=== PATIENT | female | born 1935 | race Two or more races ===

== ENCOUNTER 2019-04-14 12:17 | Inpatient (IN) | payer MEDICARE, MEDICAID ==
[~2019-04-14] VITALS: Ht 165.1 cm; Wt 64.0 kg
--- NOTE | 2019-04-14 12:24 | NUR ---
CAME IN FOR INTERMITTENT CHEST PAIN WITH SOB X 1 WEEK , 'PER OF PATIENT, FEELS TIGHT AND PAIN IN THE CHEST WHEN COUGHING", TO ER 12, HOOKED TO ACCOUNT DEVELOPMENT ASSOCIATE, CHANGED TO HOSP GOWN, PROVIDED W WARM BLANKET, AWAITING MD FONTENOT.
--- NOTE | 2019-04-14 12:34 | NUR ---
DR SALINAS AT BEDSIDE
[2019-04-14 12:56] LABS: BASOPHILS # (AUTO) 0.1 /CMM (0.0-0.2); HEMATOCRIT 43 % (33-45); HEMOGLOBIN 14.2 g/dL (11.5-14.8); LYMPHOCYTES # (AUTO) 1.2 /CMM (0.8-4.8); LYMPHOCYTES % (AUTO) 15.6 % (20.0-44.0); MEAN CORPUSCULAR HGB CONC 33 g/dl (31.0-36.0); MEAN CORPUSCULAR VOLUME 92 fL (82-100); MONOCYTES % (AUTO) 12.8 % (2.0-12.0); NEUTROPHILS # (AUTO) 5.1 /CMM (1.8-8.9); NEUTROPHILS % (AUTO) 66.6 % (43.0-81.0); PLATELET COUNT (AUTO) 261 /CMM (150-450); RED BLOOD CELL COUNT(AUTO) 4.67 MIL/uL (4.0-5.2); WHITE BLOOD COUNT (AUTO) 7.6 K/uL (4.3-11.0)
[2019-04-14] MEDS ORDERED: IPRATROPIUM NEB FS 0.5 MG/2.5 ML AMPUL.NEB NEB ONE (13:00)
[2019-04-14] MEDS ORDERED: IBUPROFEN 600 MG TABLET PO ONE ×2 (13:00→13:23)
[2019-04-14] MEDS ORDERED: ALBUTEROL FS 2.5 MG/3 ML VIAL.NEB NEB ONE (13:00)
[2019-04-14] MEDS ORDERED: ACETAMINOPHEN 650 MG/SUPP.RECT RC ONE (13:00)
[2019-04-14] MEDS ORDERED: IV NS 0.9% 1,000 ML BAG IV ONE (13:00)
[2019-04-14] MEDS ORDERED: methylPREDNISolone SOD SUCC 125 MG/2ML VIAL IV ONE (13:00)
[2019-04-14 13:07] LABS: CALCIUM, SERUM 8.8 mg/dL (8.5-10.1); CARBON DIOXIDE 24 mmol/L (21-32); CHLORIDE 104 mmol/L (98-107); CREATININE 1.1 mg/dL (0.6-1.3); GLUCOSE 101 mg/dL (74-106); POTASSIUM 4.2 mmol/L (3.5-5.1); SODIUM SERUM 136 mmol/L (136-145); UREA NITROGEN, BLOOD 19 mg/dL (7-18)
[2019-04-14] MEDS ORDERED: methylPREDNISolone SOD SUCC 125 MG/2ML VIAL ONE (13:23)
[2019-04-14] MEDS ORDERED: IPRATROPIUM NEB FS 0.5 MG/2.5 ML AMPUL.NEB ONE (13:28)
[2019-04-14] MEDS ORDERED: ACETAMINOPHEN ES 500 MG TABLET ONE (13:28)
[2019-04-14] MEDS ORDERED: ALBUTEROL FS 2.5 MG/3 ML VIAL.NEB ONE (13:28)
--- NOTE | 2019-04-14 13:30 | NUR ---
RT AT BEDSIDE FOR BREATHING TX
[2019-04-14] MEDS ORDERED: NITROGLYCERIN PACKET 1 GM PACKET TD ONE (14:00)
[2019-04-14] MEDS ORDERED: ACETAMINOPHEN ES 500 MG TABLET PO ONE (14:00)
[2019-04-14] MEDS ORDERED: ASPIRIN 325 MG TABLET PO ONE (14:00)
[2019-04-14] MEDS ORDERED: ASPIRIN 325 MG TABLET ONE (14:05)
[2019-04-14] MEDS ORDERED: NITROGLYCERIN PACKET 1 GM PACKET ONE (14:05)
[2019-04-14] MEDS ORDERED: SPIR25TA6 PO (14:36)
[2019-04-14] MEDS ORDERED: FLUT200B IH (14:36)
[2019-04-14] MEDS ORDERED: GABA-532 PO (14:36)
[2019-04-14] MEDS ORDERED: MONT10TA22 PO (14:36)
[2019-04-14] MEDS ORDERED: SERT50TA12 PO (14:36)
--- NOTE | 2019-04-14 14:44 | NUR ---
REPORT GIVEN TO ARNALDO OF TELE UNIT
[2019-04-14] MEDS ORDERED: ZOLPIDEM TARTRATE 5 MG TABLET PO PRN (15:00)
[2019-04-14] MEDS ORDERED: MAG HYDROX/AL HYDROX/SIMETH 30 ML UDC PO PRN (15:00)
[2019-04-14] MEDS ORDERED: HYDROCODONE/APAP 5/325MG 1 EACH TABLET PO PRN (15:00)
[2019-04-14] MEDS ORDERED: ONDANSETRON HCL/PF 4 MG/2 ML VIAL IVP PRN (15:00)
[2019-04-14] MEDS ORDERED: ACETAMINOPHEN 325 MG TABLET PO PRN (15:00)
[2019-04-14] MEDS ORDERED: Z GUARD REMEDY 2 OZ OINT TP PRN (15:00)
[2019-04-14] MEDS ORDERED: MAGNESIUM HYDROXIDE 30 ML UDC PO PRN (15:00)
[2019-04-14 16:30] VITALS: BP 116/73
--- NOTE | 2019-04-14 16:30 | NUR ---
rn note pt arrived from er with son at bedside, aox3, Brazilian speaking, ambulatory, vs stable, iv intact, on telemetry sr 86. no sob, no pain, safety measures place awaiting for admitting orders. will monitor.
[2019-04-14] MEDS: methylPREDNISolone SOD SUCC 40 MG/ML VIAL IV SCH (17:36)
[2019-04-14 18:00] VITALS: BP 116/73
[2019-04-14] MEDS: ALBUTEROL FS 2.5 MG/3 ML VIAL.NEB NEB SCH ×2 (19:39→23:30)
[2019-04-14] MEDS: IPRATROPIUM NEB FS 0.5 MG/2.5 ML AMPUL.NEB NEB SCH ×2 (19:39→23:30)
[2019-04-14 20:00] VITALS: BP 107/54
[2019-04-15] VITALS: BP 103/56
[2019-04-15] MEDS: ALBUTEROL FS 2.5 MG/3 ML VIAL.NEB NEB SCH ×2 (03:31→08:05)
[2019-04-15] MEDS: IPRATROPIUM NEB FS 0.5 MG/2.5 ML AMPUL.NEB NEB SCH ×6 (03:31→23:42)
[2019-04-15 04:00] VITALS: BP 114/68
[2019-04-15 07:01] LABS: BASOPHILS % (AUTO) 0.1 % (0.0-2.0); HEMATOCRIT 41 % (33-45); HEMOGLOBIN 13.4 g/dL (11.5-14.8); LYMPHOCYTES # (AUTO) 0.6 /CMM (0.8-4.8); LYMPHOCYTES % (AUTO) 4.4 % (20.0-44.0); MEAN CORPUSCULAR HGB CONC 33 g/dl (31.0-36.0); MEAN CORPUSCULAR VOLUME 92 fL (82-100); MONOCYTES # (AUTO) 0.5 /CMM (0.1-1.30); MONOCYTES % (AUTO) 3.8 % (2.0-12.0); NEUTROPHILS # (AUTO) 12.2 /CMM (1.8-8.9); NEUTROPHILS % (AUTO) 91.7 % (43.0-81.0); PLATELET COUNT (AUTO) 267 /CMM (150-450); RED BLOOD CELL COUNT(AUTO) 4.51 MIL/uL (4.0-5.2); WHITE BLOOD COUNT (AUTO) 13.3 K/uL (4.3-11.0)
--- NOTE | 2019-04-15 07:29 | NUR ---
ROLL SKINNER OPENING NOTE RECEIVED REPORT FROM [facility] SHIFT NURSE. PT AWAKE IN BED, ALERT AND ORIENTED X 4, ON 02 VIA NC 2L/MIN, SATURATING WELL, RESPIRATIONS EVEN AND UNLABORED, NO SIGNS OF RESPIRATORY DISTRESS NOTED. IV SITE ON RIGHT AC G20 INTACT, PATENT, WITH HEP LOCK IN PLACE. ON TELE MONITOR SINUS TACHY. BED IN LOW POSITION, LOCKED, CALL LIGHT WITHIN REACH. INTRODUCED SELF TO PT AND DISCUSSED PLAN OF CARE.
--- NOTE | 2019-04-15 07:31 | NUR ---
CONE EXAMINER OPENING NOTE RECEIVED REPORT FROM [facility] SHIFT NURSE. PT ASLEEP IN BED, ON 02 VIA NC 4L/MIN, SATURATING WELL, RESPIRATIONS EVEN AND UNLABORED, NO SIGNS OF RESPIRATORY DISTRESS NOTED. RIGHT UPPER ARM PICC LINE INTACT, PATENT, WITH HEP LOCK IN PLACE. BED IN LOW POSITION, LOCKED, CALL LIGHT WITHIN REACH. Addendum: 04/15/19 at 0733 by CRISTHIAN ARMANDO RN PLEASE DISREGARD THIS NOTE
[2019-04-15 07:36] LABS: CALCIUM, SERUM 9.1 mg/dL (8.5-10.1); CREATININE 1.2 mg/dL (0.6-1.3); MAGNESIUM 2.4 mg/dL (1.8-2.4); PHOSPHORUS 1.9 mg/dL (2.5-4.9); POTASSIUM 4.1 mmol/L (3.5-5.1)
[2019-04-15 08:00] VITALS: BP 109/66
[2019-04-15] MEDS: methylPREDNISolone SOD SUCC 40 MG/ML VIAL IV SCH ×3 (08:37→16:22)
[2019-04-15] MEDS: SPIRONOLACTONE 25 MG TABLET PO SCH (08:37)
[2019-04-15] MEDS: SERTRALINE HCL 50 MG TABLET PO SCH (08:37)
[2019-04-15] MEDS: MONTELUKAST SODIUM (10MG) 10 MG TABLET PO SCH (08:37)
[2019-04-15] MEDS: GABAPENTIN 100 MG CAPSULE PO SCH (08:37)
[2019-04-15] MEDS: FLUTICASONE/VILANTEROL 1 EACH BLST.W.DEV IH SCH (08:38)
[2019-04-15] MEDS: LEVALBUTEROL HCL NEB 1.25 MG/0.5 ML VIAL.NEB NEB SCH ×4 (11:32→23:42)
[2019-04-15 12:00] VITALS: BP 114/69
[2019-04-15] MEDS ORDERED: K PHOS NEUTRAL 250 MG TABLET PO ONE (13:00)
[2019-04-15 16:00] VITALS: BP 125/69
--- NOTE | 2019-04-15 19:20 | NUR ---
TELE/RN OPENING NOTE: RECEIVED PT AWAKE IN BED, A/O X 4, [place] SPEAKING. ON 4L OF OXYGEN VIA NC, SATURATING WELL, RESPIRATIONS EVEN AND UNLABORED, NO SIGNS OF RESPIRATORY DISTRESS NOTED. NO SOB NOTED. IV SITE ON RIGHT AC G20 INTACT, PATENT, WITH SL IN PLACE. ON TELE MONITOR SINUS TACHY HR OF 120'S. SAFETY MEASURES IN PLACE. BED IN LOW POSITION, LOCKED, CALL LIGHT WITHIN REACH. WILL CONTINUE MONITORING PATIENT ACCORDINGLY.
--- NOTE | 2019-04-15 19:54 | NUR ---
TELE/RN CLOSING NOTE: RECEIVED PT AWAKE IN BED, A/O X 4, SRI LANKAN SPEAKING. ON 4L OF OXYGEN VIA NC, SATURATING WELL, RESPIRATIONS EVEN AND UNLABORED, NO SIGNS OF RESPIRATORY DISTRESS NOTED. NO SOB NOTED. IV SITE ON RIGHT AC G20 INTACT, PATENT, WITH HEP LOCK IN PLACE. ON TELE MONITOR SINUS TACHY HR 122. BED IN LOW POSITION, LOCKED, CALL LIGHT WITHIN REACH. PROVIDED SAFETY AND COMFORT TO PT THROUGHOUT SHIFT, ALL DUE MEDS GIVEN. ENDORSED TO NOC SHIFT NURSE.
[2019-04-15 20:00] VITALS: BP 123/69
--- NOTE | 2019-04-15 22:06 | NUR ---
TELE/RN NOTES: PATIENT REQUESTED FOR SLEEPING MEDICATION, AMBIEN 5MG PO GIVEN AT 2206. TOLERATED WELL. WILL CONTINUE TO MONITOR PT ACCORDINGLY.
--- NOTE | 2019-04-15 23:16 | NUR ---
Met with patient, she speaks [place] only. She is alert and pleasant, states she lives locally alone on the third floor apartment with elevator access. States she is ambulatory and independent with adl's. Has no DME or homehealth reported. Her pcp is Dr. Addison Carter in [place] . She want to return home when discharge.Patient daughter Keshia [phone] will provide ride when discharge. Addendum: 04/15/19 at 2316 by NAYLA TOMAS RN Amended: Links added.
[2019-04-16] VITALS: BP 113/66
--- NOTE | 2019-04-16 02:30 | NUR ---
TELE/RN NOTES: PATIENT IS AGITATED AND STANDING AT THE HALLWAY. USED [employer] VIA PHONE. PATIENT WANTED TO BE MOVED IN A PRIVATE ROOM DUE TO HER CONDITION. ADDRESSED THE CONCERNS AT THE MEAN TIME. PATIENT MOVED TO ROOM 119 TEMPORARILY AND PATIENT IS NOW IN BED CALM, AND RESTING. WILL CONTINUE TO MONITOR ACCORDINGLY.
[2019-04-16] MEDS: LEVALBUTEROL HCL NEB 1.25 MG/0.5 ML VIAL.NEB NEB SCH ×4 (03:12→15:25)
[2019-04-16] MEDS: IPRATROPIUM NEB FS 0.5 MG/2.5 ML AMPUL.NEB NEB SCH ×4 (03:12→15:25)
[2019-04-16 04:00] VITALS: BP 145/84
--- NOTE | 2019-04-16 04:38 | NUR ---
TELE/RN NOTES: PATIENT STILL AGITATED AND WANTING TO GO OUT OF THE ROOM, PER PT "I WANT ANOTHER ROOM". CALLED DAUGHTER ILIANA AND LEFT A VOICEMAIL REGARDING PATIENT'S CONCERNS.
--- NOTE | 2019-04-16 04:58 | NUR ---
TELE/RN NOTES: PATIENT IS UPSET AND AGITATED, COMPLAINING ABOUT CHANGE OF ROOMS. PATIENT IS DEMANDING FOR A PRIVATE ROOM EXPLAINING SHE IS SCARED ABOUT HER ROOMMATE GOING INTO AN EMERGENCY AND NEEDING RAPID RESPONSE. PATIENT BELIEVES SOMEONE IS GONNA KILL HER. EXPLAINED TO PT THERE IS NO AVAILABLE PRIVATE ROOM, AND THAT SHE WILL BE THE ONLY PATIENT IN HER CURRENT TO GIVE HER PRIVACY. EXPLAINED TO PATIENT THAT SHE IS IN A SAFE ENVIRONMENT AND NO ONE IS GONNA HURT HER. PATIENT IS STILL UPSET AND WANTS TO LEAVE.
[2019-04-16 06:26] LABS: BASOPHILS % (AUTO) 0.1 % (0.0-2.0); HEMATOCRIT 42 % (33-45); LYMPHOCYTES # (AUTO) 0.9 /CMM (0.8-4.8); LYMPHOCYTES % (AUTO) 3.5 % (20.0-44.0); MEAN CORPUSCULAR HGB CONC 34 g/dl (31.0-36.0); MEAN CORPUSCULAR VOLUME 91 fL (82-100); MONOCYTES # (AUTO) 1.5 /CMM (0.1-1.30); MONOCYTES % (AUTO) 5.9 % (2.0-12.0); NEUTROPHILS # (AUTO) 22.2 /CMM (1.8-8.9); NEUTROPHILS % (AUTO) 90.5 % (43.0-81.0); PLATELET COUNT (AUTO) 333 /CMM (150-450); RED BLOOD CELL COUNT(AUTO) 4.62 MIL/uL (4.0-5.2); WHITE BLOOD COUNT (AUTO) 24.6 K/uL (4.3-11.0)
--- NOTE | 2019-04-16 07:00 | NUR ---
TELE/RN NOTES: PATIENT IS AGITATED ONCE AGAIN, THREATENING TO COMPLAIN STAFF ABOUT INCIDENTS DAYS AGO. PATIENT STARTED TAKING OF LEADS AND REFUSED TO BE CONNECTED TO THE TELE MONITOR. STARTED CHANGING INTO REGULAR CLOTHES AND WANTING TO LEAVE.
--- NOTE | 2019-04-16 07:02 | NUR ---
TELE/RN NOTES: NO CHANGES IN PATIENT'S BEHAVIOR. REFUSED TO COOPERATE WITH STAFF, WANTING TO LEAVE THE HOSPITAL. VERY AGITATED AND UPSET. WILL ENDORSE TO DAY SHIFT NURSE FOR HELIO.
[2019-04-16 07:14] LABS: CALCIUM, SERUM 9.4 mg/dL (8.5-10.1); CREATININE 1.2 mg/dL (0.6-1.3); PHOSPHORUS 2.3 mg/dL (2.5-4.9); POTASSIUM 4.1 mmol/L (3.5-5.1)
[2019-04-16 08:00] VITALS: BP_SYST 149; BP_SYST 159; BP_DIAS 86; BP_DIAS 95
--- NOTE | 2019-04-16 08:00 | NUR ---
DATA MIGRATION LEAD NOTE RECEIVED PATIENT IN BED,ALERT ORIENTED VERY AGITATED AND ANXIETY , PARAG[place]AY[place] SPEAKING, REFUSED TO PLACE TELE MONITOR, RT AC HL INTACT AND FLUSHED WELL BED IN LOWEST AND LOCKED POSITION, PLAN OF CARE DISCUSSED WITH PATIENT, ON 2L NC, NO SOB NOTED, WILL MONITOR
[2019-04-16] MEDS: methylPREDNISolone SOD SUCC 40 MG/ML VIAL IV SCH ×2 (08:41→12:47)
[2019-04-16] MEDS: GABAPENTIN 100 MG CAPSULE PO SCH (08:46)
[2019-04-16] MEDS: SERTRALINE HCL 50 MG TABLET PO SCH (08:46)
[2019-04-16] MEDS: SPIRONOLACTONE 25 MG TABLET PO SCH (08:46)
[2019-04-16] MEDS: MONTELUKAST SODIUM (10MG) 10 MG TABLET PO SCH (08:46)
[2019-04-16] MEDS: FLUTICASONE/VILANTEROL 1 EACH BLST.W.DEV IH SCH (08:50)
--- NOTE | 2019-04-16 11:00 | NUR ---
television camera operator note resting comfortably . not in distress
[2019-04-16] MEDS ORDERED: IPRA0.2S9 NEB (11:53)
[2019-04-16] MEDS ORDERED: PRED20TA PO (11:53)
[2019-04-16] MEDS ORDERED: LEVA1.2524 NEB (11:53)
[2019-04-16 12:00] VITALS: BP 131/82
--- NOTE | 2019-04-16 12:30 | NUR ---
OFFICE MOVER NOTE DR KIMBROUGH AT BEDSIDE OK TO D\C HOME , SPOKE WITH PATIENT
--- NOTE | 2019-04-16 13:50 | NUR ---
telephone order dispatcher note d\c instruction given , understood , hl removed ,dry dressing applied ,no bleeding noted , explained how to take new px and possible side effects, tele monitor removed , called to patient pharmacy stated that medication was received , instructed to f\u with pcp in2-2 days , called to daughter Lina notified that patient is d\juan miguel , stated that brother will came and bead picker her mom
--- NOTE | 2019-04-16 13:58 | NUR ---
teleprinter installer note patient dont want to wait till her son will come to pick her up .stated that live near by, will go myself , explained that , for safety measure we need to wait for her son that will come soon , but still refused to be wait ,nursing stuff wanted to go with her to lobby but patient strangely refused and pushed away operations planner , patent become very anxious and and agree, called daughter rupert ,explained that her mom dont want to wait , stated that its ok her mom know address and how to go home, has wright from her house , stated that will call her latter on ,will f\u
[2019-04-16] MEDS ORDERED: K PHOS NEUTRAL 250 MG TABLET PO ONE (15:30)
== END 2019-04-16 18:53 | disposition home or self-care (01) | DRG 866 ==
LOC: ER 12:19 → TELE1 15:26
PROVIDERS: ADMIT Family Medicine; ATTEND Family Medicine
DX: B34.9 Viral infection, unspecified (principal); J45.901 Unspecified asthma with (acute) exacerbation; R07.81 Pleurodynia; F32.9 Major depressive disorder, single episode, unspecified; D72.829 Elevated white blood cell count, unspecified; T38.0X5A Adverse effect of glucocorticoids and synthetic analogues, initial encounter; Y92.89 Other specified places as the place of occurrence of the external cause; R73.9 Hyperglycemia, unspecified; I10 Essential (primary) hypertension
CPT/HCPCS: 36415; 71045-TC; 80048-TC; 80061-TC; 83605-TC; 83735-TC; 83880; 84100-TC; 84484-TC; 85025-TC; 87040-TC; 87081-TC; 93307-TC; 94640-TC; 94799-TC; G0378; J2920; J2930; J7030